=== PATIENT | male | born 1965 | race Caucasian/White ===

== ENCOUNTER → 2016-06-18 | Outpatient (CLI) | payer OTHER ==
[~2016-06-18] MED LIST: HYDR-4383 PO; OMEP40CA41 PO; ZNTT/150 PO
[2016-06-18 12:37] LABS: CHOLESTEROL/HDL RATIO 3.9; PROSTATE SPECIFIC ANTIGEN 0.938 ng/ml (0.000-4.000); THYROID STIMULATING HORMONE 1.36 uIu/ml (0.300-4.500)
== END | disposition home or self-care (01) ==
LOC: C.LABBFT 09:41
PROVIDERS: ATTEND Internal Medicine
DX: E78.5 Hyperlipidemia, unspecified (principal); Z12.5 Encounter for screening for malignant neoplasm of prostate; Z13.29 Encounter for screening for other suspected endocrine disorder

== ENCOUNTER 2016-11-06 12:57 | Emergency (ER) | payer OTHER ==
[~2016-11-06] VITALS: Ht 177.8 cm; Wt 100.0 kg
[~2016-11-06 12:57] MED LIST changes: -OMEP40CA41 PO; -ZNTT/150 PO
[2016-11-06 13:05] VITALS: TEMP 36.5; Ht 177.8 cm; Wt 100.0 kg
[2016-11-06] MEDS ORDERED: ZNTT/150 PO (13:30)
[2016-11-06] MEDS ORDERED: OMEP40CA41 PO (13:30)
[2016-11-06] MEDS ORDERED: ONDANSETRON INJ 2 MG/ML 2 ML VIAL IV STA (13:38)
[2016-11-06] MEDS ORDERED: SODIUM CHLORIDE 0.9% 500ML 500 ML IV STA (13:38)
--- NOTE | 2016-11-06 13:41 | EMERGENCY ROOM VISIT NOTE ---
History Report prepared by Lianibe: Savanah Rodriguez Under the Supervision of: Dr. Man Stacy M.D. First contact with patient: 13:29 Chief Complaint: HEAD INJURY (MAJOR) Stated Complaint: LOWER BACK PAIN/HEAD LACERATION History of Present Illness The patient is a 51 year old male who presents to the Emergency Room by EMS with complaints of getting hit in the back of the head by a falling tree an hour ago. The patient denies loss of consciousness, neck pain, and headache. He notes jaw, sternal, teeth, left knee, right shoulder, and right rib pain. He notes some shortness of breath, The rib pain worsens with breathing. His tetanus status is current. Source of History: patient Onset: an hour ago Position: head Quality: other (injury) Associated Symptoms: + SOB, No LOC, No headache, No neck pain Note: Pt notes severe rib pain that worsens with breathing. Pt also notes jaw, teeth, left knee, right shoulder, and right elbow pain. Review of Systems See HPI for pertinent positives & negatives. A total of 10 systems reviewed and were otherwise negative. Past Medical & Surgical Medical Problems: (1) HTN (hypertension) (2) Hydrops of gallbladder (3) Inguinal hernia (4) Shoulder dislocation Family History No pertinent family history Social History Smoking Status: Never Smoker Marital Status: Current/Historical Medications Scheduled Omeprazole (Prilosec), 40 MG PO DAILY Ranitidine (Zantac), 150 MG PO BID Allergies Coded Allergies: No Known Allergies (Verified , 11/06/16) Physical Exam Vital Signs Date Time Temp Pulse Resp B/P (MAP) Pulse Ox O2 Delivery O2 Flow Rate FiO2 11/06/16 16:25 90 18 125/88 97 11/06/16 16:15 90 18 125/88 97 Room Air 11/06/16 15:30 76 20 141/89 92 Room Air 11/06/16 15:12 79 11/06/16 14:00 74 20 138/86 99 Room Air 11/06/16 13:05 36.5 72 20 142/93 97 Room Air 11/06/16 13:05 20 Physical Exam GENERAL: Patient is in no acute distress. HEENT: Posterior scalp laceration 3-4 cm in size no active bleeding, superficial lower inner lip laceration, no dental trauma, no obvious facial trauma, mucous membranes moist. NECK: C-collar in place. LUNGS: Clear to auscultation bilaterally, no wheeze, no rhonchi, breath sounds equal. Right lower ribs are tender with palpation. HEART: Without murmurs gallops or rubs, regular rate and rhythm. ABDOMEN: Tender in right upper quadrant. No peritonitis, +BS. No abdominal wall contusions. EXTREMITIES: Some pain to move left knee no obvious deformity, no obvious upper extremity deformity, some discomfort with movement of right shoulder, no obvious right shoulder dislocation. NEUROLOGIC: Oriented x 3, no acute motor or sensory deficits, no focal weakness. SKIN: No rash, no jaundice, no diaphoresis. Medical Decision & Procedures ER Provider Diagnostic Interpretation: Radiology results as stated below per my review and radiologist interpretation: ABDOMEN AND PELVIS CT WITH IV AND ORAL CONTRAST FINDINGS: Mild superior endplate compression fracture at T12. Nondisplaced right anterior eighth and ninth rib fractures. Mild dependent changes seen at the lung bases. Mild paravertebral edema at the T12 level. Moderate hiatus hernia. Cholecystectomy. The liver, spleen, adrenal glands, pancreas, and kidneys are unremarkable. No retroperitoneal lymphadenopathy. Tiny fat-containing umbilical hernia. Normal caliber abdominal aorta. No retroperitoneal hematoma. Normal bladder. No pelvic free fluid. Colonic diverticulosis. No bowel wall thickening or obstruction. Normal appendix. IMPRESSION: 1. Mild superior endplate compression fracture at T12. 2. Nondisplaced right anterior eighth and ninth rib fractures. 3. Cholecystectomy. Electronically signed by: Rasta Carbone M.D. CERVICAL SPINE CT FINDINGS: No fractures. No subluxation. Prevertebral soft tissues and the C1-C2 interval are intact. No pneumothorax. Mild disc space narrowing at C6-C7 with endplate osteophytes. IMPRESSION: No fractures within the cervical spine. Electronically signed by: Rasta Carbone M.D. CT OF THE CHEST WITH IV CONTRAST FINDINGS: There is no evidence of traumatic injury to the thoracic aorta. There is slight dilatation of the ascending aorta which measures 4 cm at the level the main pulmonary artery. Moderate sized hiatal hernia is present. No pneumothorax or pulmonary contusion is present. Groundglass opacities within lungs reflect atelectasis. There is an acute mild compression fracture of the superior endplate of T12 with 25% loss of vertebral body height. No extension into the posterior elements is noted. There is a nondisplaced fracture of the upper sternum, immediately inferior to the sternomanubrial articulation. There is also an acute nondisplaced fracture of the inferior sternum. No acute rib fractures identified on this exam. Several old bilateral rib fractures are present. IMPRESSION: 1. No evidence of traumatic injury to the thoracic aorta. No pneumothorax. 2. Acute mild T12 compression fracture with 25% loss of vertebral body height. No compression. Minimal prevertebral hematoma. 3. Acute nondisplaced fracture of the upper sternum and acute nondisplaced fracture of the lower sternum. Electronically signed by: Eric Berry M.D. HEAD WITHOUT CONTRAST (CT) FINDINGS: Prize Coordinator topogram: Unremarkable. Minimal infiltration along the subcutaneous tissues overlying the occiput with a small subgaleal hematoma towards the vertex. No subjacent osseous injury. Skull base intact. Ventricles and sulci normal in size. Brain parenchyma normal in appearance with preserved dupont-white differentiation. No mass effect or midline shift. No hemorrhage or acute territorial infarct. No extra-axial fluid collection. Paranasal sinuses and mastoid air cells clear. Calvarium intact. IMPRESSION: 1. No acute intracranial pathology. 2. Contusion overlying the occiput with small subgaleal hematoma towards the vertex. Electronically signed by: Aldo Peña M.D. MAXILLOFACIAL CT FINDINGS: The visualized cervical spine, skull base, pterygoid plates, nasal bones, lamina papyracea, orbital floors, mandible, and left leg amount of March are intact. No acute fractures. The orbits are unremarkable. Minimal offset at the right zygomatic arch suture line. This is likely old. There is no overlying soft tissue swelling to suggest an acute injury. IMPRESSION: No definite acute fractures within the maxillofacial region. Minimal offset at the right zygomatic arch suture line. This is likely old. There is no overlying soft tissue swelling to suggest an acute injury. Electronically signed by: Rasta Carbone M.D. LEFT KNEE 1 OR 2 VIEWS ROUTINE DISCUSSION: No acute fractures or dislocations are visualized. Mild degenerative changes are present within the patellofemoral joint. There is no significant joint effusion. IMPRESSION: No fractures or dislocations identified. Electronically signed by: Michael Méndez M.D. RIGHT SHOULDER MIN 2 VIEWS ROUTINE FINDINGS: No fracture is identified. There is elevation of the right humeral head which suggests a chronic rotator cuff tear. Findings suggest a prior distal right clavicular resection. There is moderate arthritis of the right glenohumeral joint. IMPRESSION: 1. No acute fracture or dislocation of the right shoulder. 2. Moderate osteoarthritis of the right glenohumeral joint with elevation of the humeral head which suggests a chronic rotator cuff tear. Electronically signed by: Eric Berry M.D. Laboratory Results 11/06/16 13:30 11/06/16 13:30 Test 11/06/16 13:30 11/06/16 13:35 Red Blood Count 5.04 M/uL (4.7-6.1) Mean Corpuscular Volume 86.7 fL (80-100) Mean Corpuscular Hemoglobin 31.0 pg (25-34) Mean Corpuscular Hemoglobin Concent 35.7 g/dl (32-36) RDW Standard Deviation 41.6 fL (36.4-46.3) RDW Coefficient of Variation 13.1 % (11.5-14.5) Mean Platelet Volume 10.7 fL (7.4-10.4) Prothrombin Time 10.5 SECONDS (9.0-12.0) Prothromb Time International Ratio 1.0 (0.9-1.1) Activated Partial Thromboplast Time 24.3 SECONDS (21.0-31.0) Partial Thromboplastin Ratio 0.9 Est Creatinine Clear Calc Drug Dose 103.6 ml/min Estimated GFR () 100.6 Estimated GFR (Non- 86.8 BUN/Creatinine Ratio 14.9 (10-20) Calcium Level 9.2 mg/dl (8.5-10.1) Total Bilirubin 1.2 mg/dl (0.2-1) Aspartate Amino Transf (AST/SGOT) 26 U/L (15-37) Alanine Aminotransferase (ALT/SGPT) 34 U/L (12-78) Alkaline Phosphatase 55 U/L (45-117) Total Protein 7.2 gm/dl (6.4-8.2) Albumin 4.1 gm/dl (3.4-5.0) Globulin 3.1 gm/dl (2.5-4.0) Albumin/Globulin Ratio 1.3 (0.9-2) Bedside Hemoglobin 15.3 g/dl (14.0-18.0) Bedside Hematocrit 45 % (42-52) Bedside Sodium 140 mEq/L (135-144) Bedside Potassium 4.1 mEq/L (3.3-5.0) Bedside Chloride 103 mEq/L (101-112) Bedside Total CO2 26 mEq/l (24-31) Anion Gap 16.0 mmol/L (16-25) Bedside Blood Urea Nitrogen 15 mg/dl (7-18) Bedside Creatinine 1.0 mg/dl (0.6-1.3) Bedside Glucose (other) 97 mg/dl (70-99) Bedside Ionized Calcium (Mayra) 1.17 mmol/l (1.12-1.32) Laboratory results reviewed by me. Medications Administered Medications (Trade) Dose Ordered Sig/Diego Route Start Time Stop Time Status Last Admin Dose Admin Sodium Chloride 500 ml @ 999 mls/hr Q31M STAT IV 11/06/16 13:38 11/06/16 14:08 DC 11/06/16 13:59 999 MLS/HR Morphine Sulfate (MoRPHine SULFATE INJ) 4 mg Q15M PRN IV 11/06/16 13:45 11/06/16 17:41 DC 11/06/16 16:13 4 MG Ondansetron HCl (Zofran Inj) 4 mg NOW STAT IV 11/06/16 13:38 11/06/16 13:41 DC 11/06/16 13:56 4 MG Cefazolin Sodium (Ancef 1000mg/55 ml D5W) 2,000 mg NOW STAT IV 11/06/16 15:51 11/06/16 15:53 DC 11/06/16 16:13 2,000 MG ECG Indication: other (trauma/head injury) Rate (beats per minute): 62 Rhythm: normal sinus Findings: no acute ischemic change, no ectopy ED Course 1332: The patient was evaluated in room B11A. A complete history and physical exam was performed. 1338: Zofran Inj 4 mg IV, Sodium Chloride 500 ml @ 999 mls/hr IV. 1345: Morphine Sulfate 4 mg IV. 1445: Ioversol 125 ml IV. 1535: Discussed the patient's case with Dr. Norm Franco. He accepted the patient for transfer. 1551: Cefazolin Sodium 2,000 mg IV. 1700: The patient was transferred. Medical Decision Differential diagnosis includes but is not limited to: intracranial bleed, facial fracture, C-spine fracture, rib fracture, pneumothorax, pulmonary contusion, intraabdominal bleeding, extremity fracture or contusion; renal, liver or spleen injury. There is no leukocytosis or anemia. No significant electrolyte abnormality, kidney failure or hepatitis. EKG shows a normal sinus rhythm, no ischemia. Right shoulder film does not show fracture or dislocation, some chronic change was seen. Left knee film shows no obvious fracture. C-spine CT does not show fracture. Facial CT shows no obvious acute fracture. Brain CT shows no acute bleed or mass effect, no skull fracture. Chest CT does not show pulmonary contusion or pneumothorax. There were 2 rib fractures on the right, the sternum was fractured in 2 [address]. Abdominal and pelvis CT does not show any solid organ injury or intra-abdominal blood. There was a T12 compression fracture with a surrounding hematoma noted. The patient received IV saline, he received IV morphine for pain control. The laceration on the scalp was bandaged. He was given IV Ancef as antibiotic coverage. He received IV Zofran for nausea. Given the multiple traumatic findings on imaging, I did contact [facility]. The patient is being sent there by ground ambulance. He will be a trauma workup when he arrives. Right now, the patient is more comfortable and breathing well. He is not toxic. He is not unstable. He was happy with his care and understood the need for transfer. His laceration can be repaired once the trauma workup is complete at [facility]. The patient did have his stiff collar removed, he has good motion of his neck with no pain or difficulty. I felt his neck was clear clinically. Medication Reconcilliation Current Medication List: was personally reviewed by me Blood Pressure Screening Patient's blood pressure: Elevated blood pressure Blood pressure disposition: Elevated BP felt to be situational Consults Time Called: 1530 Consulting Physician: Dr. Norm Franco Returned Call: 1535 Discussed the patient's case. He accepted the patient for transfer. Impression Primary Impression: Rib fracture Additional Impressions: Sternal fracture T12 compression fracture Scalp laceration Head trauma Scribe Attestation The scribe's documentation has been prepared under my direction and personally reviewed by me in its entirety. I confirm that the note above accurately reflects all work, treatment, procedures, and medical decision making performed by me. Departure Information Dispostion Transfer Acute Care Facility Referrals RV. Berry MD (PCP) Patient Instructions My [facility] Problem Qualifiers
[2016-11-06 13:47] LABS: ISTAT HEMOGLOBIN 15.3 g/dl (14.0-18.0); ISTAT IONIZED CALCIUM 1.17 mmol/l (1.12-1.32)
[2016-11-06 13:53] LABS: HEMATOCRIT 43.7 % (42-52); MEAN CELL VOLUME 86.7 fL (80-100); MEAN CORPUSCULAR HGB CONC 35.7 g/dl (32-36); MEAN PLATELET VOLUME 10.7 fL (7.4-10.4); PLATELET COUNT 206 K/uL (130-400); RED BLOOD COUNT 5.04 M/uL (4.7-6.1); WHITE BLOOD COUNT 8.96 K/uL (4.8-10.8)
[2016-11-06 13:59] LABS: PARTIAL THROMBOPLASTIN RATIO 0.9; PROTHROMBIN TIME (PATIENT) 10.5 SECONDS (9.0-12.0)
[2016-11-06] MEDS: MoRPHine SULFATE 4 MG/ML 1 ML CARP\\VIAL IV PRN ×2 (13:59→16:13)
[2016-11-06 14:06] LABS: BUN/CREATININE RATIO 14.9 (10-20); CALCIUM 9.2 mg/dl (8.5-10.1); POTASSIUM 4.1 mmol/L (3.5-5.1)
[2016-11-06 14:09] LABS: ALB/GLOB RATIO 1.3 (0.9-2)
--- NOTE | 2016-11-06 14:42 | DIAGNOSTIC IMAGING REPORT ---
HEAD WITHOUT CONTRAST (CT) CLINICAL HISTORY: 51 years-old Male presenting with tree injury. TECHNIQUE: Multidetector CT imaging of the head was performed without the use of intravenous contrast. IV contrast: None. A dose lowering technique was used consistent with the principles of ALARA (as low as reasonably achievable). COMPARISON: None. CT DOSE (mGy.cm): The estimated cumulative dose is 2631.67 inclusive of the cervical spine, face, chest, and abdomen and pelvis. FINDINGS: Hot Dipper topogram: Unremarkable. Minimal infiltration along the subcutaneous tissues overlying the occiput with a small subgaleal hematoma towards the vertex. No subjacent osseous injury. Skull base intact. Ventricles and sulci normal in size. Brain parenchyma normal in appearance with preserved dupont-white differentiation. No mass effect or midline shift. No hemorrhage or acute territorial infarct. No extra-axial fluid collection. Paranasal sinuses and mastoid air cells clear. Calvarium intact. IMPRESSION: 1. No acute intracranial pathology. 2. Contusion overlying the occiput with small subgaleal hematoma towards the vertex. Electronically signed by: Aldo Peña M.D. 11/06/2016 2:41 PM Dictated Date/Time: 11/06/2016 2:39 PM
[2016-11-06] MEDS ORDERED: OPTIRAY 320 IV PRN (14:45)
--- NOTE | 2016-11-06 14:46 | DIAGNOSTIC IMAGING REPORT ---
CERVICAL SPINE CT CT DOSE: HISTORY: Fall. tree injury TECHNIQUE: Multiaxial CT images of the cervical spine were performed and reformatted in the sagittal and coronal plane without the use of contrast. A dose lowering technique was utilized adhering to the principles of ALARA. COMPARISON: None. FINDINGS: No fractures. No subluxation. Prevertebral soft tissues and the C1-C2 interval are intact. No pneumothorax. Mild disc space narrowing at C6-C7 with endplate osteophytes. IMPRESSION: No fractures within the cervical spine. Electronically signed by: Rasta Carbone M.D. 11/06/2016 2:45 PM Dictated Date/Time: 11/06/2016 2:39 PM
--- NOTE | 2016-11-06 14:55 | DIAGNOSTIC IMAGING REPORT ---
MAXILLOFACIAL CT CT DOSE: HISTORY: Fall. tree injury TECHNIQUE: Multiaxial CT images of the maxillofacial region were performed and reformatted in the coronal plane without the use of contrast. A dose lowering technique was utilized adhering to the principles of ALARA. COMPARISON: None. FINDINGS: The visualized cervical spine, skull base, pterygoid plates, nasal bones, lamina papyracea, orbital floors, mandible, and left leg amount of March are intact. No acute fractures. The orbits are unremarkable. Minimal offset at the right zygomatic arch suture line. This is likely old. There is no overlying soft tissue swelling to suggest an acute injury. IMPRESSION: No definite acute fractures within the maxillofacial region. Minimal offset at the right zygomatic arch suture line. This is likely old. There is no overlying soft tissue swelling to suggest an acute injury. Electronically signed by: Rasta Carbone M.D. 11/06/2016 2:53 PM Dictated Date/Time: 11/06/2016 2:45 PM
--- NOTE | 2016-11-06 14:57 | DIAGNOSTIC IMAGING REPORT ---
CT OF THE CHEST WITH IV CONTRAST CLINICAL HISTORY: Fall. Chest trauma. COMPARISON STUDY: No previous studies for comparison. TECHNIQUE: Following IV administration of 93 mL of Optiray-320, helical axial images of the chest were obtained. Sagittal and coronal reconstructions were viewed as well as maximal intensity projections on an independent 3-D workstation. A dose lowering technique was utilized adhering to the principles of ALARA. CT DOSE: 2631.67 mGy.cm FINDINGS: There is no evidence of traumatic injury to the thoracic aorta. There is slight dilatation of the ascending aorta which measures 4 cm at the level the main pulmonary artery. Moderate sized hiatal hernia is present. No pneumothorax or pulmonary contusion is present. Groundglass opacities within lungs reflect atelectasis. There is an acute mild compression fracture of the superior endplate of T12 with 25% loss of vertebral body height. No extension into the posterior elements is noted. There is a nondisplaced fracture of the upper sternum, immediately inferior to the sternomanubrial articulation. There is also an acute nondisplaced fracture of the inferior sternum. No acute rib fractures identified on this exam. Several old bilateral rib fractures are present. IMPRESSION: 1. No evidence of traumatic injury to the thoracic aorta. No pneumothorax. 2. Acute mild T12 compression fracture with 25% loss of vertebral body height. No compression. Minimal prevertebral hematoma. 3. Acute nondisplaced fracture of the upper sternum and acute nondisplaced fracture of the lower sternum. Electronically signed by: Eric Berry M.D. 11/06/2016 2:56 PM Dictated Date/Time: 11/06/2016 2:44 PM
--- NOTE | 2016-11-06 15:05 | DIAGNOSTIC IMAGING REPORT ---
ABDOMEN AND PELVIS CT WITH IV AND ORAL CONTRAST CT DOSE: HISTORY: Fall. TRAUMA--GIVE QUICK PO AND GIVE IV CONTRAST TECHNIQUE: Multiaxial CT images of the abdomen and pelvis were performed following the use of intravenous and oral contrast. A dose lowering technique was utilized adhering to the principles of ALARA. COMPARISON STUDY: Abdomen and pelvis CT 03/06/2016. FINDINGS: Mild superior endplate compression fracture at T12. Nondisplaced right anterior eighth and ninth rib fractures. Mild dependent changes seen at the lung bases. Mild paravertebral edema at the T12 level. Moderate hiatus hernia. Cholecystectomy. The liver, spleen, adrenal glands, pancreas, and kidneys are unremarkable. No retroperitoneal lymphadenopathy. Tiny fat-containing umbilical hernia. Normal caliber abdominal aorta. No retroperitoneal hematoma. Normal bladder. No pelvic free fluid. Colonic diverticulosis. No bowel wall thickening or obstruction. Normal appendix. IMPRESSION: 1. Mild superior endplate compression fracture at T12. 2. Nondisplaced right anterior eighth and ninth rib fractures. 3. Cholecystectomy. Electronically signed by: Rasta Carbone M.D. 11/06/2016 3:04 PM Dictated Date/Time: 11/06/2016 2:54 PM
[2016-11-06] MEDS ORDERED: CEFAZOLIN SOD 1000MG/55 ML D5W IV STA (15:51)
--- NOTE | 2016-11-06 16:02 | DIAGNOSTIC IMAGING REPORT ---
LEFT KNEE 1 OR 2 VIEWS ROUTINE CLINICAL HISTORY: Left knee pain status post trauma COMPARISON: None. DISCUSSION: No acute fractures or dislocations are visualized. Mild degenerative changes are present within the patellofemoral joint. There is no significant joint effusion. IMPRESSION: No fractures or dislocations identified. Electronically signed by: Michael Méndez M.D. 11/06/2016 4:00 PM Dictated Date/Time: 11/06/2016 3:59 PM
--- NOTE | 2016-11-06 16:06 | DIAGNOSTIC IMAGING REPORT ---
RIGHT SHOULDER MIN 2 VIEWS ROUTINE CLINICAL HISTORY: Right shoulder pain following fall. COMPARISON: None FINDINGS: No fracture is identified. There is elevation of the right humeral head which suggests a chronic rotator cuff tear. Findings suggest a prior distal right clavicular resection. There is moderate arthritis of the right glenohumeral joint. IMPRESSION: 1. No acute fracture or dislocation of the right shoulder. 2. Moderate osteoarthritis of the right glenohumeral joint with elevation of the humeral head which suggests a chronic rotator cuff tear. Electronically signed by: Eric Berry M.D. 11/06/2016 4:05 PM Dictated Date/Time: 11/06/2016 4:04 PM
[2016-11-06 16:25] VITALS: BP 125/88; PULSE 90; O2SAT 97
== END 2016-11-06 16:25 | disposition short-term general hospital (02) ==
LOC: EDBD 12:57 → C.EDB 12:58
DX: S22.41XA Multiple fractures of ribs, right side, initial encounter for closed fracture (principal); S22.20XA Unspecified fracture of sternum, initial encounter for closed fracture; S01.01XA Laceration without foreign body of scalp, initial encounter; S01.511A Laceration without foreign body of lip, initial encounter; S22.089A Unspecified fracture of T11-T12 vertebra, initial encounter for closed fracture; W22.8XXA Striking against or struck by other objects, initial encounter; I10 Essential (primary) hypertension

== ENCOUNTER → 2017-07-23 | Outpatient (CLI) | payer OTHER ==
[~2017-07-23] MED LIST changes: -HYDR-4383 PO; +OMEP40CA41 PO; +RANI150T85 PO
[2017-07-23 13:06] LABS: BLOOD UREA NITROGEN 14 mg/dl (7-18); CREATININE 0.99 mg/dl (0.60-1.40); GLUCOSE 92 mg/dl (70-99)
[2017-07-23 13:07] LABS: ALBUMIN 4.3 gm/dl (3.4-5.0); ALT/SGPT 23 U/L (12-78); AST/SGOT 15 U/L (15-37); CALCIUM 9.2 mg/dl (8.5-10.1); CARBON DIOXIDE 25 mmol/L (21-32); POTASSIUM 4.1 mmol/L (3.5-5.1); SODIUM 137 mmol/L (136-145)
[2017-07-23 13:10] LABS: ALKALINE PHOSPHATASE 76 U/L (45-117); CHOLESTEROL 257 mg/dl (0-200); LDL CHOLESTEROL CALCULATED 175 mg/dl; TOTAL PROTEIN 7.8 gm/dl (6.4-8.2)
== END | disposition home or self-care (01) ==
LOC: C.LAB1850 10:42
PROVIDERS: ATTEND Internal Medicine
DX: E78.5 Hyperlipidemia, unspecified (principal); R25.2 Cramp and spasm; M54.5 Low back pain

== ENCOUNTER 2017-07-30 03:32 | Emergency (ER) | payer OTHER ==
[~2017-07-30] VITALS: Ht 177.8 cm; Wt 94.9 kg
[2017-07-30 03:35] VITALS: TEMP 36.9; Ht 177.8 cm; Wt 94.9 kg
[2017-07-30] MEDS ORDERED: LIDOCAINE 1% BUFFERED INJ 5 ML VIAL INFIL ONE ×2 (04:15)
[2017-07-30 05:38] VITALS: BP 141/84; PULSE 78; O2SAT 96
--- NOTE | 2017-07-31 04:04 | EMERGENCY ROOM VISIT NOTE ---
ED Visit Note First contact with patient: 03:46 CHIEF COMPLAINT: Foot laceration HISTORY OF PRESENT ILLNESS: This 52 year old male patient presents to the emergency department after cutting the bottom of his left foot just prior to arrival. The patient states that he was carrying his garbage out side when he stepped on something sharp, causing a laceration at the bottom plantar aspect of his left first toe. The bleeding has stopped. Denies weakness or numbness of the toe. The patient rates the pain as dull and 3/10. The patient denies any other injuries. The patient's Tetanus shot is reportedly up to date. REVIEW OF SYSTEMS: A 6 system review of systems was completed with positives and pertinent negatives listed in the HPI. ALLERGIES: No known allergies MEDICATIONS: See EMR PMH: See EMR SOCIAL HISTORY: Lives locally PHYSICAL EXAM: Vital Signs: Reviewed Nurse's notes, vital signs stable. GENERAL : White male, in no acute distress, well-developed, well-nourished. SKIN: There is a 3.0 cm long laceration on the plantar aspect of the foot just at the MTP joint. The edges gape apart with traction. There is no foreign material in the wound and it looks clean. There is no significant bleeding. No deep structures such as tendons, bones, or significant blood vessels are seen in the base of the wound. Normal strength and movement of the foot and toes. Capillary refill less than 2 seconds. Normal sensation to light and sharp touch. EMERGENCY DEPARTMENT COURSE: I examined the patient. Verbal consent was obtained to perform the procedure. Using sterile technique the wound was cleansed with Betadine. The area was sterilely draped. 10 ml of 1% buffered lidocaine was used to anesthetize the laceration on the foot/toe in a local fashion. Once the patient was anesthetized, the wound was copiously irrigated under pressure with sterile saline. The wound was explored and was as described above. The laceration was repaired using 4 simple interrupted 4-0 nylon sutures with the wound edges being well approximated. The patient tolerated the procedure well. Hemostasis was achieved. The area was cleaned with sterile saline and dressed with bacitracin ointment and bandage. The patient was discharged home in good condition. He will be given a dose of antibiotics to help prevent infection. Problem List Medical Problems: (1) HTN (hypertension) Status: Chronic (2) Inguinal hernia Status: Resolved (3) Shoulder dislocation Status: Resolved Current/Historical Medications Scheduled Omeprazole (Prilosec), 40 MG PO DAILY Ranitidine (Zantac), 150 MG PO BID Allergies Coded Allergies: No Known Allergies (Verified , 07/30/17) Vital Signs Date Time Temp Pulse Resp B/P (MAP) Pulse Ox O2 Delivery O2 Flow Rate FiO2 07/30/17 05:38 78 15 141/84 96 07/30/17 03:35 36.9 87 18 145/88 98 Room Air Departure Information Impression Primary Impression: Laceration Dispostion Home / Self-Care Condition GOOD Referrals RV. Berry MD (PCP) Forms HOME CARE DOCUMENTATION FORM, IMPORTANT VISIT INFORMATION Patient Instructions My [facility], ED Laceration All Additional Instructions Keep wound clean and dry. Do not allow any crusting or dried blood to accumulate on sutures. If this occurs, use a mild soap/water on a Q-tip to clean the wound. Do not use Peroxide to clean the wound as this can delay healing Use an antibiotic ointment like Bacitracin for 3-4 days, then let wound dry. You may bathe and shower as normal, but DO NOT SOAK the wound. Suture removal in about 12-14 days with your Family Doctor or in the ER. Return sooner for any signs of infection, increasing redness, swelling, or drainage.
== END 2017-07-30 05:40 | disposition home or self-care (01) ==
LOC: C.EDB 03:33
DX: S91.312A Laceration without foreign body, left foot, initial encounter (principal); W45.8XXA Other foreign body or object entering through skin, initial encounter; Y92.89 Other specified places as the place of occurrence of the external cause; I10 Essential (primary) hypertension; Z79.899 Other long term (current) drug therapy